=== PATIENT | female | born 1995 | race Caucasian/White ===

== ENCOUNTER 2020-06-29 15:47 | Outpatient (CLI) | payer OTHER ==
[2020-06-29 16:39] VITALS: BP 131/82
[2020-06-29 17:29] LABS: BASOPHILS # (AUTO) 0.1 10^3/uL (0.0-0.1); BASOPHILS % (AUTO) 0.3 %; EOSINOPHILS # (AUTO) 0.3 10^3/uL (0.0-0.7); EOSINOPHILS % (AUTO) 1.5 %; HCT - HEMATOCRIT 37.4 % (37.0-47.0); HGB - HEMOGLOBIN 12.3 g/dL (12.0-16.0); LYMPHOCYTES # (AUTO) 2.1 10^3/uL (1.5-3.5); LYMPHOCYTES % (AUTO) 10.9 %; MEAN CORPUSCULAR HEMOGLOBIN 30.9 pg (27.0-31.0); MEAN CORPUSCULAR HGB CONC 32.9 g/dL (32.0-36.0); MEAN PLATELET VOLUME 9.9 fL (7.9-10.8); MONOCYTES # (AUTO) 0.9 10^3/uL (0.0-1.0); MONOCYTES % (AUTO) 4.7 %; NEUTROPHILS # (AUTO) 15.6 10^3/uL (1.5-6.6); PLT - PLATELET COUNT 258 10^3/uL (130-450); RED BLOOD COUNT 3.98 10^6/uL (4.20-5.40); RED CELL DISTRIBUTION WIDTH 12.6 % (12.0-15.0); WHITE BLOOD COUNT 19.1 x10^3/uL (4.8-10.8)
--- NOTE | 2020-06-29 18:40 | Ultrasound Report ---
PROCEDURE: OB Limited INDICATIONS: Vaginal bleeding, concern for abruption. OUTSIDE/PRIOR DATING DATA: Estimated date of delivery (ASHLEY) from first dating scan: 08/26/2020, provider supplied. The below data below was generated using the above ASHLEY of 08/26/2020 TECHNIQUE: Real-time scanning was performed of the fetus, with image documentation. Endovaginal scanning: Done COMPARISON: None. FINDINGS: A single living intrauterine gestation is present. Presentation: Breech Placenta: Placental position is anterior, without previa or abruption. Amniotic fluid index: 16.2 cm heart rate: 144 beats per minutes. Maternal cervical canal: Not well visualized Visualized anatomy within appropriate limits IMPRESSION: Single live intrauterine consistent with a clinical age of 31 week 5 day No ultrasound evidence of placental abruption Reviewed by: Fan Vázquez MD on 06/29/2020 5:39 PM SENG Approved by: Fan Vázquez MD on 06/29/2020 5:39 PM SENG Station ID: [id number]
--- NOTE | 2020-06-29 18:46 | HISTORY & PHYSICAL EXAMINATION ---
Admit History - Visit Reason Visit Reason: Bloody show - : 1 Parity: 0 Premature: 0 Ectopic: 0 : 0 Complications This : positive: None - Mother's Labs Mother's Blood Type: positive: O Mother's RH: positive: Negative Rubella Status: positive: Immune - Other Maternal History Other Maternal History: Identification: Patient is a 24-year-old primigravida. Her EDC by LMP is 14 August 2020. She had an early ultrasound done at 6 weeks 2 days which give her an EDC of 19 August 2020. She has 2 further ultrasounds one done at 21 weeks and the other done at 22 weeks which gives EDC's of cysts 27 August and 22 August respectively. By LMP she is currently 33 weeks and 2 days. Chief complaint bloody show History of present illness: Patient states that she had brown vaginal discharge this morning. Change to pink this afternoon. She presented to labor and delivery at 1630. Patient notes good motion as well as doing kick counts. Heart tones were unable to be auscultated upon arrival to labor and delivery bedside ultrasound was performed showing the infant to be back down with excellent amniotic fluid and active cardiac activity at 130 bpm. Because of the bloody show and no previous OB care here ultrasound was performed which showed no evidence of previa or abruption. Patient has a history of having had a cervix which was noted to be 2.8 cm. She was started on progesterone a follow-up ultrasound showed the cervix to then be 3.5 cm without any funneling.7 cm.For this reason her progesterone was stopped. A yeast infection both of which were being treated. Patient stopped her OB care at roughly 23 weeks because she was traveling [facility] to [place]. She was also noted to have a low vitamin D. Patient is noted to be O- and has not received any RhoGam at this time. Early 50 gm was 99 and HgA1C was normal. Med Hx left knee arthritis Sx Hx none Meds: PNV Vit D NKA Habits None Social Hx: ADN Meds/Allgy - Allergies Allergies/Adverse Reactions: Allergies Allergy/AdvReac Type Severity Reaction Status Date / Time lavender (Lavandula Allergy Rash Verified 06/29/20 19:39 angustifolia) Physical - Abdominal Exam Vital Signs: Temp Pulse Resp BP Pulse Ox 37.2 C 90 20 131/82 H 98 06/29/20 16:24 06/29/20 16:24 06/29/20 16:24 06/29/20 16:24 06/29/20 16:24 Contraction Frequency (min/apart): none Uterine Resting Tone: positive: Soft - Presentation Presentation: positive: Transverse - Vaginal Exam Membranes: positive: Membranes intact (ROM +) Dilation (in cm): 0 Effacement (%): 2.9 cm Cervical Position: positive: Posterior - Speculum Exam Speculum Exam Performed: positive: Yes (FFN negative, ROM + negative) Plan for Labor - Plan For Labor I expect patient to be DC'd or transferred within 96 hours.: Yes Plan for Labor: Patient is currently not in labor she is.33 weeks gestation Have discussed labor rupture membranes and motion. She was informed that should she have any suggestion of fluid leakage that she should present back sooner. We are trying to arrange for her to be seen in the clinic as soon as possible. She will be receiving RhoGam she is also had a 50 g Glucola test done today.
[2020-06-29 19:02] LABS: RUPTURE OF MEMBRANES PLUS NEGATIVE (NEGATIVE)
--- NOTE | 2020-06-29 19:25 | Ultrasound Report ---
PROCEDURE: OB Transvaginal INDICATIONS: check cervical length OUTSIDE/PRIOR DATING DATA: Last menstrual period (LMP): Unknown. LMP-based estimated date of delivery (ASHLEY): No. First dating scan (date and location): None available. Estimated date of delivery (ASHLEY) from first dating scan: 31 weeks 5 days. The below data below was generated using the provider stated ASHLEY of 08/26/2020 TECHNIQUE: Real-time scanning was performed of the fetus, with image documentation. Endovaginal scanning: Performed COMPARISON: None. FINDINGS: A single living intrauterine gestation is present. Presentation: Breech Placenta: Placental position is anterior, without previa. Amniotic fluid index: 16.2 cm, within normal limits. Largest pocket measures 8.04 cm heart rate: 144 beats per minutes. Maternal cervical canal: 2.99 cm long; normal length is 2.5 cm or more. IMPRESSION: Single living intrauterine fetus in breech presentation Cervical canal length of 2.99 cm. No evidence of placental abruption. No placenta previa. Dr. Fish was present during the examination and aware of the findings. Reviewed by: Keith Sharma MD on 06/29/2020 7:24 PM PDT Approved by: Keith Sharma MD on 06/29/2020 7:24 PM PDT Station ID: [id number]
[2020-06-29] MEDS ORDERED: RHO(D) IMMUNE GLOBULIN 300 MCG SYRINGE IM ONE (19:33)
[2020-06-29] MEDS ORDERED: BETAMETHASONE 30 MG/5 ML VIAL IM SCH (21:00)
[2020-06-29 21:29] LABS: RUPTURE OF MEMBRANES PLUS NEGATIVE (NEGATIVE)
== END 2020-06-29 21:40 | disposition home or self-care (01) ==
LOC: WFO 15:47 → FBP 15:52 → WFO 21:40
PROVIDERS: ATTEND Obstetrics & Gynecology
DX: O46.93 Antepartum hemorrhage, unspecified, third trimester (principal); O32.1XX0 Maternal care for breech presentation, not applicable or unspecified; O99.891 Other specified diseases and conditions complicating pregnancy; Z67.41 Type O blood, Rh negative; Z3A.33 33 weeks gestation of pregnancy
CPT/HCPCS: 59025; 82731; 82950; 84112; 85025; 86850; 86900; 86901; 87081; 87181; 87797; 96372; 99214; 99215

== ENCOUNTER 2020-06-30 20:53 | Outpatient (CLI) | payer OTHER ==
[2020-06-30] MEDS ORDERED: BETAMETHASONE 30 MG/5 ML VIAL IM ONE (21:04)
== END 2020-06-30 21:20 | disposition home or self-care (01) ==
LOC: WFO 20:53 → FBP 20:54 → WFO 21:20
PROVIDERS: ATTEND Obstetrics & Gynecology
DX: O60.00 Preterm labor without delivery, unspecified trimester (principal); Z3A.00 Weeks of gestation of pregnancy not specified
CPT/HCPCS: 96372

== ENCOUNTER 2020-07-06 06:51 | Inpatient (IN) | payer OTHER ==
[2020-07-06] MEDS ORDERED: LACTATED RINGERS 1,000 ML IV ONE ×3 (07:16→10:19)
[2020-07-06] MEDS ORDERED: ceFAZolin 3 GM in SODIUM CHLORIDE 0.9% 100ML 100 ML IV ONE ×2 (07:19→08:00)
[2020-07-06] MEDS ORDERED: CITRIC ACID/SODIUM CITRATE 15 ML UDC PO ONE (07:19)
[2020-07-06] MEDS ORDERED: MAGNESIUM SULFATE 4 GRAM 4 GM/50 ML BAG IV ONE ×2 (07:19→07:27)
[2020-07-06] MEDS ORDERED: MAGNESIUM SULFATE 2 GRAM 4 GM/100 ML BAG IV ONE (07:26)
[2020-07-06] MEDS ORDERED: MAGNESIUM SULFATE IN WATER 20 GM/500 ML IV.SOLN IV ONE (07:27)
[2020-07-06 07:30] LABS: RUPTURE OF MEMBRANES PLUS POSITIVE (NEGATIVE)
[2020-07-06] MEDS ORDERED: miSOPROStoL 200 MCG TABLET ONE (07:38)
[2020-07-06] MEDS ORDERED: CARBOPROST TROMETHAMINE 250 MCG/ML AMP IM ONE (07:39)
[2020-07-06] MEDS ORDERED: METHYLERGONOVINE 0.2 MG/ML VIAL ONE (07:39)
[2020-07-06] MEDS ORDERED: ceFAZolin 2 GM/50 ML 2 GM/50 ML BAG IV SCH (07:40)
[2020-07-06 07:42] LABS: BASOPHILS # (AUTO) 0.1 10^3/uL (0.0-0.1); BASOPHILS % (AUTO) 0.2 %; EOSINOPHILS # (AUTO) 0.2 10^3/uL (0.0-0.7); EOSINOPHILS % (AUTO) 0.9 %; HCT - HEMATOCRIT 34.1 % (37.0-47.0); HGB - HEMOGLOBIN 11.6 g/dL (12.0-16.0); LYMPHOCYTES # (AUTO) 2.4 10^3/uL (1.5-3.5); LYMPHOCYTES % (AUTO) 10.8 %; MEAN CORPUSCULAR HEMOGLOBIN 31.4 pg (27.0-31.0); MEAN CORPUSCULAR VOLUME 92.2 fL (81.0-99.0); MEAN PLATELET VOLUME 9.7 fL (7.9-10.8); MONOCYTES # (AUTO) 1.1 10^3/uL (0.0-1.0); NEUTROPHILS # (AUTO) 18.4 10^3/uL (1.5-6.6); NEUTROPHILS % (AUTO) 82.4 %; PLT - PLATELET COUNT 271 10^3/uL (130-450); RED CELL DISTRIBUTION WIDTH 12.3 % (12.0-15.0); WHITE BLOOD COUNT 22.4 x10^3/uL (4.8-10.8)
[2020-07-06 07:43] LABS: SLIDE REVIEW? Indicated
[2020-07-06] MEDS ORDERED: MORPHINE PF 5 MG/10 ML VIAL ONE (07:43)
[2020-07-06] MEDS ORDERED: fentaNYL 100 MCG/2 ML VIAL ONE (07:43)
[2020-07-06] MEDS ORDERED: PHENYLEPHRINE 10 MG/ML VIAL ONE (07:45)
[2020-07-06] MEDS ORDERED: OXYTOCIN 10 UNIT/ML VIAL ONE (07:45)
--- NOTE | 2020-07-06 07:52 | HISTORY & PHYSICAL EXAMINATION ---
HPI - Admitted From Admitted from: OB - History Obtained From Records Reviewed: Old records reviewed (PREVIOUS H&P stated her ROM + was positive. in reality it was negative. See lab results.) History obtained from: Patient - History of Present Illness HPI Comment/Other: Identification: Patient is a 24-year-old female who is EDC is4 August. This makes her 32 weeks and 5 days. Spontaneous rupture of membran. History of present illness patient awoke this morning at 6:00 with fluid leaking from vagina she describes this as being a large amount. She presented t PMH/PSH - Past Medical History Cardiovascular: positive: None Respiratory: positive: None Neuro: positive: None Endocrine/Autoimmune: positive: None GI: positive: None EP SPECIALIST: positive: None Social & Family Hx - Living Situation Living Arrangement: At home Living Situation: With spouse/s.o. - Social History Does the pt smoke?: No Smoking Status: Never smoker Does the pt drink ETOH?: No Does the pt have substance abuse?: No Meds/Allgy - Allergies Allergies/Adverse Reactions: Allergies Allergy/AdvReac Type Severity Reaction Status Date / Time lavender (Lavandula Allergy Rash Verified 06/29/20 19:39 angustifolia) Exam - Vital Signs Reviewed Vital Signs: Yes Vital Signs: Vital Signs x48h Temp Pulse Resp BP Pulse Ox 07/06/20 07:22 36.8 C 07/06/20 07:01 36.8 C 101 H 16 125/79 99 - Physical Exam General Appearance: positive: No acute distress, Alert Eyes Bilateral: positive: Normal inspection, PERRL Respiratory: positive: Chest non-tender, No respiratory distress, Breath sounds nml Cardiovascular: positive: Regular rate & rhythm, No murmur, No gallop Abdomen: positive: Non-tender, No organomegaly, Nml bowel sounds, No distention, Mass (GRAVID) Results - Lab Results Fish Bones: 07/08/20 06:47 Other Lab Results: Lab Results x24hrs 07/06/20 07/06/20 Range/Units 07:30 07:07 WBC 22.4 H (4.8-10.8) x10^3/uL RBC 3.70 L (4.20-5.40) 10^6/uL Hgb 11.6 L (12.0-16.0) g/dL Hct 34.1 L (37.0-47.0) % MCV 92.2 (81.0-99.0) fL MCH 31.4 H (27.0-31.0) pg MCHC 34.0 (32.0-36.0) g/dL RDW 12.3 (12.0-15.0) % Plt Count 271 (130-450) 10^3/uL MPV 9.7 (7.9-10.8) fL Manual Slide Review Indicated Membranes Rupture POSITIVE A (NEGATIVE) Impression/Plan - Problem List Problem List: 24 yo 33 weeks SROM Breech presentation Nontransferable. Stabilize, Nursery transport team PLTC/S
[2020-07-06] MEDS ORDERED: MAGNESIUM SULFATE IN WATER 20 GM/500 ML IV.SOLN IV SCH (08:00)
[2020-07-06 08:01] LABS: RBC MORPHOLOGY (MULTIPLE) 2+ ANISOCYTOSIS (NORMAL)
--- NOTE | 2020-07-06 08:12 | ANESTHESIA ---
Pre-Anesthesia VS, & Labs - Diagnosis Rupture of membrane, breech presentation - Procedure primary c/s Vital Signs: Temp Pulse Resp BP Pulse Ox 36.9 C 87 17 119/61 97 07/06/20 08:00 07/06/20 08:00 07/06/20 08:00 07/06/20 08:00 07/06/20 08:00 Height: 5 ft 5 in Weight (kg): 94.347 kg Body Mass Index: 34.6 BMI Classification: Obese - Is Patient ?: Yes - Lab Results Current Lab Results: Laboratory Tests 07/06/20 07:30: WBC 22.4 H, RBC 3.70 L, Hgb 11.6 L, Hct 34.1 L, MCV 92.2, MCH 31.4 H, MCHC 34.0, RDW 12.3, Plt Count 271, MPV 9.7, Neut # (Auto) 18.4 H, Lymph # (Auto) 2.4, [place] # (Auto) 1.1 H, Eos # (Auto) 0.2, Baso # (Auto) 0.1, Absolute Nucleated RBC 0.00, Nucleated RBC % 0.0, Manual Slide Review Indicated, RBC Morph Micro Appear 2+ ANISOCYTOSIS Fish Bones: 07/06/20 07:30 Home Medications and Allergies Active Medications Lactated Ringer's (Lr) 1,000 mls @ 999 mls/hr IV ONCE ONE Stop: 07/06/20 08:18 Last Admin: 07/06/20 07:23 Dose: 999 mls/hr Documented by: Magnesium Sulfate (Magnesium Sulf 20 G/500 Ml Bag) 20 gm in 500 mls @ 50 mls/hr IV .Q10H ANAM Cefazolin Sodium 3 gm/ Sodium (Chloride) 100 mls @ 200 mls/hr IV ONCE ONE Stop: 07/06/20 08:29 Allergies/Adverse Reactions: Allergies Allergy/AdvReac Type Severity Reaction Status Date / Time lavender (Lavandula Allergy Rash Verified 06/29/20 19:39 angustifolia) Anes History & Medical History - Anesthetic History Family history of Anesthesia Complications: Denies Family history of Malignant Hyperthermia: Denies - Medical History Cardiovascular: reports: None Pulmonary: reports: None Gastrointestinal: reports: None Urinary: reports: None Neuro: reports: None Musculoskeletal: reports: None Endocrine/Autoimmune: reports: None Blood Disorders: reports: None Skin: reports: None Smoking Status: Never smoker Psychosocial: reports: No issues indicated History of Cancer?: No - Obstetrical History : 1 Parity: 0 Events: reports: labor <37 weeks Complications: reports: None Exam General: Alert, Oriented x3, Cooperative, No acute distress Dental: WNL Mouth Openin Fingerbreadth Neck Mobility: Normal Mallampati classification: I Thyromental Distance: 4-6 cm Mental/Cognitive Status: Alert/Oriented X3, Normal for patient Plan Anesthesia Type: Spinal Consent for Procedure(s) Verified and Reviewed: Yes Code Status: Attempt Resuscitation ASA classification: 2-Mild systemic disease Is this case an emergency?: Yes
[2020-07-06] MEDS ORDERED: AMPICILLIN 2 GM in SODIUM CHLORIDE 0.9% MINIBAG 100 ML IV SCH (08:15)
[2020-07-06] MEDS ORDERED: LIDOCAINE MPF 2%-EPI 1:200000 20 ML VIAL ONE (08:41)
[2020-07-06] MEDS ORDERED: BUPIVACAINE 0.25% PF 30 ML VIAL ONE (08:41)
[2020-07-06] MEDS ORDERED: fentaNYL 100 MCG/2 ML VIAL IT ONE (08:41)
[2020-07-06] MEDS ORDERED: MORPHINE PF 5 MG/10 ML VIAL IT ONE (08:41)
[2020-07-06] MEDS ORDERED: LIDOCAINE 2%-EPI 1:100000 20 ML MDV SUBQ ONE ×2 (08:42)
[2020-07-06] MEDS ORDERED: BUPIVACAINE 0.25% PF 30 ML VIAL SUBQ ONE ×2 (08:42→09:59)
[2020-07-06] MEDS ORDERED: ONDANSETRON 4 MG/2 ML VIAL ONE (09:14)
[2020-07-06] MEDS ORDERED: KETAMINE 500 MG/10 ML VIAL ONE (09:28)
[2020-07-06] MEDS ORDERED: SODIUM CHLORIDE 0.9% 10 ML VIAL IVP ONE ×3 (09:29→11:43)
[2020-07-06] MEDS ORDERED: MIDAZOLAM 2 MG/2 ML VIAL ONE (09:31)
[2020-07-06] MEDS ORDERED: KETOROLAC 30 MG/ML VIAL ONE (10:02)
[2020-07-06] MEDS ORDERED: diphenhydrAMINE 25 MG CAPSULE PO PRN (10:18)
[2020-07-06] MEDS ORDERED: SODIUM CHLORIDE FLUSH 0.9% 10 ML SYRINGE IVP PRN (10:18)
[2020-07-06] MEDS ORDERED: ONDANSETRON 4 MG/2 ML VIAL IVP PRN ×4 (10:18→10:27)
--- NOTE | 2020-07-06 10:24 | OPERATIVE REPORT ---
Operative Report - General Admit Date: 07/06/20 Procedure Date: 07/06/20 Planned Procedure: Stat primary low transverse section Pre-Op Diagnosis: 1..Spontaneous rupture of membranes #2 breech presentation number #33 weeks Procedure Performed: Primary stat low transverse section Post Op Diagnosis: Same - Procedure Note Primary Surgeon: Jono Fish MD Secondary Surgeon: Casandra Kaminski MD Anesthesia Provider: Joey Colon CRNA Anesthesia Technique: Spinal Estimated Blood Loss (mL): 400 Urine Output (mL): 600 Findings: Live female breech presentation deep into the pelvis minimal amniotic fluid. - Other Other Information/Narrative: Patient is was taken to the operating room at which time a vaginal prep with Betadine was performed a Devlin catheter was placed under sterile conditions and she was prepped and draped in the usual fashion following a timeout the procedure was commenced. A Pfannenstiel incision was carried down through the subcutaneous tissue to the fascia. The fascia was split transversely then utilizing blunt dissection was freed from the rectus abdominis. The rectus was split along the midline the peritoneum was entered bluntly. The incision was carried superior and inferior with Metzenbaum scissors. Care was taken avoid injury to the bladder. At this point a bladder flap was developed using both bl unt and sharp dissection. A low transverse uterine is incision was accomplished using a #10 baby bandage scissors as well as finger spread technique. The breech of the infant was noted to be deep in the pelvic cavity. It was brought up through the incision the breech was delivered in the standard fashion. At this point the cord was allowed to pulsate for 1 minute and then was doubly clamped and divided care was taken to give at least 10-15 cm of cord for strike warfare/missile systems officer. At this point a segment of cord was clamped and set at 5 side for cord gases. Cord blood was attempted to be obtained but difficult secondary to the shortness of the cord. The placenta was then manually delivered the uterus was exteriorized wrapped in with moist lap and cleansed in the internal portion with a dry lap. And extension of the incision was noted on the left-hand side in a T fashion. This was closed utilizing 0 Vicryl in a running locking suture. The incision itself was closed utilizing #0 Vicryl in running locked incision. Both incisions were imbricated with 0 Vicryl. There is an area at the T which was reinforced with an additional 0 Vicryl. The uterus was then tipped forward and the cul-de-sac was irrigated and the estimated blood loss was obtained at this time. The uterus was delivered back in the abdominal cavity. The gutters were irrigated and noted to be free of clot. The incision was inspected a single figure of 8 was utilized to reinforce that there was evidence of good hemostasis. The peritoneum was closed utilizing 2-0 Vicryl the rectus was inspected and electrocautery was used for hemostasis. The fascia was then closed utilizing a looped PDS in a running suture the subcutaneous tissue was inspected no bleeding noted so this was closed utilizing 2-0 Vicryl the incision itself was closed utilizing 4-0 Monocryl subcuticular. The incision was injected once again with quarter percent Marcaine with epinephrine. At this point a sterile dressing was placed. The uterus was then expressed for clot. Patient tolerated procedure well. Dr. Kaminski's assistance was necessary for performing this case and was very much appreciated. Sponge and needle count was correct
[2020-07-06] MEDS ORDERED: ePHEDrine 50 MG/ML VIAL IVP PRN ×3 (10:26→10:27)
[2020-07-06] MEDS ORDERED: ATROPINE ABBOJECT 1 MG/10 ML SYRINGE IVP PRN (10:26)
[2020-07-06] MEDS ORDERED: NALBUPHINE 10 MG/ML AMP IVP PRN ×2 (10:26→10:27)
[2020-07-06] MEDS ORDERED: fentaNYL 100 MCG/2 ML VIAL IVP PRN (10:26)
[2020-07-06] MEDS ORDERED: METOCLOPRAMIDE 10 MG/2 ML VIAL IVP PRN ×3 (10:26→10:27)
[2020-07-06] MEDS ORDERED: HYDROmorphone 0.5 MG/0.5 ML SYRINGE IVP PRN (10:26)
[2020-07-06] MEDS ORDERED: diphenhydrAMINE INJ 50 MG/ML VIAL IVP PRN ×2 (10:26→10:27)
[2020-07-06] MEDS ORDERED: MORPHINE 2 MG/ML CARPUJECT IVP PRN (10:26)
[2020-07-06] MEDS ORDERED: NALOXONE 0.4 MG/ML VIAL IVP PRN ×3 (10:26→10:27)
[2020-07-06] MEDS ORDERED: LACTATED RINGERS 1,000 ML IV SCH (11:00)
[2020-07-06] MEDS: LACTATED RINGERS 1,000 ML IV SCH (12:05)
--- NOTE | 2020-07-06 12:10 | ANESTHESIA POST OP EVALUATION ---
Anesthesia Post Eval - Post Anesthesia Eval Vitals: Last Vital Signs Temp 36.6 C 07/06/20 11:58 Pulse 76 07/06/20 11:58 Resp 16 07/06/20 11:58 BP 114/58 L 07/06/20 11:58 Pulse Ox 100 07/06/20 11:58 CV Function Including HR & BP: Stable Pain Control: Satisfactory Nausea & Vomiting: Negative Mental Status: Baseline Respiratory Status: Airway Patent Hydration Status: Satisfactory Anesthesia Complications: None
[2020-07-06] MEDS: oxyCODONE 5 MG TABLET PO PRN ×2 (13:28→19:45)
[2020-07-06] MEDS: ACETAMINOPHEN 500 MG TABLET PO SCH ×2 (13:28→21:12)
[2020-07-06] MEDS ORDERED: OXYTOCIN/SODIUM CHLORIDE 500 ML IV PRN (15:17)
[2020-07-06] MEDS: KETOROLAC 30 MG/ML VIAL IVP SCH ×2 (16:46→22:34)
[2020-07-06] MEDS: SODIUM CHLORIDE FLUSH 0.9% 10 ML SYRINGE IVP SCH (16:47)
[2020-07-06] MEDS: DOCUSATE SODIUM 100 MG CAPSULE PO SCH (19:45)
[2020-07-07] MEDS: oxyCODONE 5 MG TABLET PO PRN ×4 (00:06→19:59)
[2020-07-07] MEDS: KETOROLAC 30 MG/ML VIAL IVP SCH (04:30)
[2020-07-07] MEDS: SODIUM CHLORIDE FLUSH 0.9% 10 ML SYRINGE IVP SCH (04:36)
[2020-07-07] MEDS: ACETAMINOPHEN 500 MG TABLET PO SCH ×4 (04:36→21:14)
[2020-07-07] MEDS: LACTATED RINGERS 1,000 ML IV SCH ×2 (04:37→04:44)
[2020-07-07] MEDS: DOCUSATE SODIUM 100 MG CAPSULE PO SCH ×3 (04:44→21:14)
[2020-07-07 05:46] LABS: BASOPHILS % (AUTO) 0.3 %; EOSINOPHILS % (AUTO) 0.9 %; HGB - HEMOGLOBIN 10.2 g/dL (12.0-16.0); LYMPHOCYTES % (AUTO) 11.2 %; MEAN CORPUSCULAR HEMOGLOBIN 31.3 pg (27.0-31.0); MEAN CORPUSCULAR HGB CONC 32.9 g/dL (32.0-36.0); MEAN CORPUSCULAR VOLUME 95.1 fL (81.0-99.0); MEAN PLATELET VOLUME 9.9 fL (7.9-10.8); MONOCYTES % (AUTO) 6.4 %; NEUTROPHILS % (AUTO) 80.6 %; PLT - PLATELET COUNT 251 10^3/uL (130-450); RED BLOOD COUNT 3.26 10^6/uL (4.20-5.40); RED CELL DISTRIBUTION WIDTH 12.6 % (12.0-15.0); WHITE BLOOD COUNT 21.2 x10^3/uL (4.8-10.8)
[2020-07-07 05:50] LABS: ABNORMAL LYMPHS % (MANUAL) 0 %
[2020-07-07 06:07] LABS: BAND NEUTROPHILS % (MANUAL) 5 %; BASOPHILS # (MANUAL) 0.2 10^3/uL (0-0.1); BASOPHILS % (MANUAL) 1 %; DIFFERENTIAL COMMENT MANUAL DIFFERENTIAL; EOSINOPHILS # (MANUAL) 1.1 10^3/uL (0-0.7); LYMPHOCYTES # (MANUAL) 2.3 10^3/uL (1.5-3.5); LYMPHOCYTES % (MANUAL) 11 %; MONOCYTES # (MANUAL) 0.4 10^3/uL (0.0-1.0); NEUTROPHILS # (MANUAL) 17.2 10^3/uL (1.5-6.6); PLATELET ESTIMATE, MANUAL NORMAL (130-450,000) (NORMAL); RBC MORPHOLOGY (MULTIPLE) NORMAL APPEARANCE (NORMAL)
--- NOTE | 2020-07-07 08:06 | PROVIDER PROGRESS NOTE ---
Subjective - General Admit Date: 07/06/20 Procedure Date: 07/06/20 Post Op Days: 1 Procedure Performed: Emergency PLTC/S - Review of Systems Wound/Incisions: positive: Dressing dry and intact General: positive: No symptoms (Pain 2-5/10 adiquit pain control with meds) Gastrointestinal: positive: Flatus Genitourinary: positive: No symptoms Objective - Patient Data Reviewed Vital Signs: Yes Vital Signs: Vital Signs x48h Temp Pulse Resp BP Pulse Ox 07/07/20 02:00 36.8 C 85 16 106/53 L 98 07/07/20 00:13 36.6 C 87 14 105/52 L 98 Weight: Weight 07/05/20 07/06/20 07/07/20 23:59 23:59 23:59 Weight (kg) 94.347 kg Intake & Output: Intake and Output Totals x24h 07/05/20 07/06/20 07/07/20 23:59 23:59 23:59 Intake Total 31.667 1485.833 Output Total 1855 450 Balance -6919.852 6409.833 - Lab Results Lab Results: 07/07/20 05:40 Other Lab Results: Lab Results x24hrs 07/07/20 07/07/20 07/07/20 Range/Units 05:51 05:40 05:40 WBC 21.2 H (4.8-10.8) x10^3/uL RBC 3.26 L (4.20-5.40) 10^6/uL Hgb 10.2 L (12.0-16.0) g/dL Hct 31.0 L (37.0-47.0) % MCV 95.1 (81.0-99.0) fL MCH 31.3 H (27.0-31.0) pg MCHC 32.9 (32.0-36.0) g/dL RDW 12.6 (12.0-15.0) % Plt Count 251 (130-450) 10^3/uL MPV 9.9 (7.9-10.8) fL Neut # (Auto) Not Reportable Lymph # (Auto) Not Reportable [place] # (Auto) Not Reportable Eos # (Auto) Not Reportable Baso # (Auto) Not Reportable Absolute Nucleated RBC Not Reportable Total Counted 100 Band Neuts % (Manual) 5 (0 - 10) % Abnorm Lymph % (Manual) 0 % Nucleated RBC % Not Reportable Neutrophils # (Manual) 17.2 H (1.5-6.6) 10^3/uL Lymphocytes # (Manual) 2.3 (1.5-3.5) 10^3/uL Monocytes # (Manual) 0.4 (0.0-1.0) 10^3/uL Eosinophils # (Manual) 1.1 H (0-0.7) 10^3/uL Basophils # (Manual) 0.2 H (0-0.1) 10^3/uL Differential Comment MANUAL DIFFERENTIAL Platelet Estimate NORMAL (130-450,000) (NORMAL) RBC Morph Micro Appear NORMAL APPEARANCE (NORMAL) POC Whole Bld Glucose 85 (70 - 100) mg/dL Blood Type O NEGATIVE Weak D (Du) WEAK-D NEGATIVE Antibody Screen Antibody Identification NURIS, IgG Specific NURIS, Polyspecific NURIS, C3d Specific Maternal Bleed NEGATIVE (NEGATIVE) Crossmatch IS Only 07/06/20 Range/Units 07:30 WBC (4.8-10.8) x10^3/uL RBC (4.20-5.40) 10^6/uL Hgb (12.0-16.0) g/dL Hct (37.0-47.0) % MCV (81.0-99.0) fL MCH (27.0-31.0) pg MCHC (32.0-36.0) g/dL RDW (12.0-15.0) % Plt Count (130-450) 10^3/uL MPV (7.9-10.8) fL Neut # (Auto) Lymph # (Auto) [place]itchie # (Auto) Eos # (Auto) Baso # (Auto) Absolute Nucleated RBC Total Counted Band Neuts % (Manual) (0 - 10) % Abnorm Lymph % (Manual) % Nucleated RBC % Neutrophils # (Manual) (1.5-6.6) 10^3/uL Lymphocytes # (Manual) (1.5-3.5) 10^3/uL Monocytes # (Manual) (0.0-1.0) 10^3/uL Eosinophils # (Manual) (0-0.7) 10^3/uL Basophils # (Manual) (0-0.1) 10^3/uL Differential Comment Platelet Estimate (NORMAL) RBC Morph Micro Appear (NORMAL) POC Whole Bld Glucose (70 - 100) mg/dL Blood Type O NEGATIVE Weak D (Du) Antibody Screen POSITIVE Antibody Identification See Comments NURIS, IgG Specific Not Reportable NURIS, Polyspecific NEGATIVE NURIS, C3d Specific Not Reportable Maternal Bleed (NEGATIVE) Crossmatch IS Only See Detail - Current Medications Current Medications: Current Medications Generic Name Dose Route Start Last Admin Trade Name Freq PRN Reason Stop Dose Admin Acetaminophen 1,000 mg 07/06/20 11:30 07/07/20 04:38 Acetaminophen 500 Mg Tablet PO 1,000 mg Q8HR ANAM Administration Docusate Sodium 100 mg 07/06/20 12:00 07/07/20 04:44 Docusate Sodium 100 Mg Capsule PO Not Given BID ANAM Magnesium Sulfate 20 gm in 500 mls @ 50 mls/hr 07/06/20 08:00 07/06/20 09:00 Magnesium Sulf 20 G/500 Ml Bag IV 0 gm/hr .Q10H ANAM 0 mls/hr Infusion 2 GM/HR Lactated Ringer's 1,000 mls @ 100 mls/hr 07/06/20 11:00 07/07/20 04:44 Lr IV Not Given .Q10H ANAM Oxytocin/Sodium Chloride 500 mls @ 999 mls/hr 07/06/20 15:17 07/07/20 01:28 Pitocin/Sodium Chloride IV 0 milliunit/min PRN PRN 0 mls/hr POST- HEMORR PREVENTION Titration Protocol 999 MILLIUNIT/MIN Ketorolac Tromethamine 30 mg 07/06/20 16:00 07/07/20 04:30 Ketorolac 30 Mg/Ml Vial IVP 07/07/20 10:01 30 mg Q6H ANAM Administration Oxycodone HCl 5 mg 07/06/20 10:18 07/07/20 00:06 Oxycodone 5 Mg Tablet PO 5 mg Q4HR PRN Administration PAIN Sodium Chloride 10 ml 07/06/20 17:00 07/07/20 04:36 Sodium Chloride Flush 0.9% 10 Ml Syringe IVP 10 ml 0100,0900,1700 ANAM Administration - Physical Exam Wound/Incisions: positive: Dressing dry and intact General Appearance: positive: No acute distress, Alert Respiratory: positive: Chest non-tender, No respiratory distress, Breath sounds nml Cardiovascular: positive: Regular rate & rhythm, No murmur, No gallop Abdomen: positive: Nml bowel sounds, Tenderness (uterus), Mass (@U) Back: negative: CVA tenderness (R), CVA tenderness (L) Extremities: negative: Calf tenderness, Calvin's sign/cords Neurologic/Psychiatric: positive: Oriented x3 Impression/Plan - Problem List Problem List: Postop day #1. Status post emergency low transverse section. Breech presentation. Patient exhibits a leukocytosis of 21,000. Her uterus is tender. She is not running a fever at this time. Baby is in NICU in [place]. At this point we will elect to treat her with antibiotics because we would like to get her home if at all possible tomorrow. We will choose Unasyn as this has a good transfer to Augmentin should she need this for discharge.
[2020-07-07] MEDS: AMPICILLIN/SULBACTAM 3 GM in SODIUM CHLORIDE 0.9% MINIBAG 100 ML IV SCH ×3 (09:20→22:15)
[2020-07-07] MEDS: IBUPROFEN 800 MG TABLET PO PRN ×2 (11:09→19:59)
[2020-07-07] MEDS ORDERED: RHO(D) IMMUNE GLOBULIN 300 MCG SYRINGE IM ONE (11:38)
[2020-07-08] MEDS ORDERED: SIMETHICONE CHEW 80 MG TABLET PO ONE (00:27)
[2020-07-08] MEDS: SODIUM CHLORIDE FLUSH 0.9% 10 ML SYRINGE IVP SCH (00:30)
[2020-07-08] MEDS: KETOROLAC 30 MG/ML VIAL IVP SCH (00:30)
[2020-07-08] MEDS: oxyCODONE 5 MG TABLET PO PRN ×3 (00:39→12:52)
[2020-07-08] MEDS: SIMETHICONE CHEW 80 MG TABLET PO SCH ×2 (00:39→13:37)
[2020-07-08] MEDS: IBUPROFEN 800 MG TABLET PO PRN ×2 (04:21→12:51)
[2020-07-08] MEDS: AMPICILLIN/SULBACTAM 3 GM in SODIUM CHLORIDE 0.9% MINIBAG 100 ML IV SCH ×2 (04:24→13:50)
[2020-07-08] MEDS: ACETAMINOPHEN 500 MG TABLET PO SCH ×2 (05:00→13:37)
[2020-07-08 06:57] LABS: BASOPHILS # (AUTO) 0.1 10^3/uL (0.0-0.1); BASOPHILS % (AUTO) 0.3 %; EOSINOPHILS # (AUTO) 0.4 10^3/uL (0.0-0.7); EOSINOPHILS % (AUTO) 2.3 %; HCT - HEMATOCRIT 30.2 % (37.0-47.0); HGB - HEMOGLOBIN 9.7 g/dL (12.0-16.0); LYMPHOCYTES # (AUTO) 2.7 10^3/uL (1.5-3.5); LYMPHOCYTES % (AUTO) 15.5 %; MEAN CORPUSCULAR HEMOGLOBIN 30.5 pg (27.0-31.0); MEAN CORPUSCULAR HGB CONC 32.1 g/dL (32.0-36.0); MEAN PLATELET VOLUME 9.6 fL (7.9-10.8); MONOCYTES % (AUTO) 5.5 %; NEUTROPHILS # (AUTO) 13.2 10^3/uL (1.5-6.6); NEUTROPHILS % (AUTO) 75.8 %; PLT - PLATELET COUNT 263 10^3/uL (130-450); RED BLOOD COUNT 3.18 10^6/uL (4.20-5.40); RED CELL DISTRIBUTION WIDTH 12.6 % (12.0-15.0); WHITE BLOOD COUNT 17.4 x10^3/uL (4.8-10.8)
--- NOTE | 2020-07-08 08:04 | PROVIDER PROGRESS NOTE ---
Subjective - General Admit Date: 07/06/20 Procedure Date: 07/06/20 Post Op Days: 2 Procedure Performed: Emergency PLTC/S - Review of Systems Wound/Incisions: positive: Healing well (dressing removed) General: positive: No symptoms (Pain 2-5/10 adiquit pain control with meds) Gastrointestinal: positive: Flatus Genitourinary: positive: No symptoms Objective - Patient Data Reviewed Vital Signs: Yes Vital Signs: Vital Signs x48h Temp Pulse Resp BP Pulse Ox 07/08/20 02:00 37 C 81 18 108/55 L 99 Weight: Weight 07/06/20 07/07/20 07/08/20 23:59 23:59 23:59 Weight (kg) 94.347 kg Intake & Output: Intake and Output Totals x24h 07/06/20 07/07/20 07/08/20 23:59 23:59 23:59 Intake Total 31.667 2635.833 100 Output Total 1855 1250 Balance -1439.376 7468.833 100 - Lab Results Lab Results: 07/08/20 06:47 Other Lab Results: Lab Results x24hrs 07/08/20 07/06/20 07/06/20 Range/Units 06:47 07:30 07:30 WBC 17.4 H (4.8-10.8) x10^3/uL RBC 3.18 L (4.20-5.40) 10^6/uL Hgb 9.7 L (12.0-16.0) g/dL Hct 30.2 L (37.0-47.0) % MCV 95.0 (81.0-99.0) fL MCH 30.5 (27.0-31.0) pg MCHC 32.1 (32.0-36.0) g/dL RDW 12.6 (12.0-15.0) % Plt Count 263 (130-450) 10^3/uL MPV 9.6 (7.9-10.8) fL Neut # (Auto) 13.2 H (1.5-6.6) 10^3/uL Lymph # (Auto) 2.7 (1.5-3.5) 10^3/uL [place] # (Auto) 1.0 (0.0-1.0) 10^3/uL Eos # (Auto) 0.4 (0.0-0.7) 10^3/uL Baso # (Auto) 0.1 (0.0-0.1) 10^3/uL Absolute Nucleated RBC 0.00 x10^3/uL Nucleated RBC % 0.0 /100WBC Blood Type O NEGATIVE Cancelled Antibody Screen POSITIVE Cancelled Antibody Identification See Comments Cancelled NURIS, IgG Specific Not Reportable Cancelled NURIS, Polyspecific NEGATIVE Cancelled NURIS, C3d Specific Not Reportable Cancelled Crossmatch See Detail See Detail Crossmatch IS Only See Detail - Current Medications Current Medications: Current Medications Generic Name Dose Route Start Last Admin Trade Name Freq PRN Reason Stop Dose Admin Acetaminophen 1,000 mg 07/06/20 11:30 07/08/20 05:00 Acetaminophen 500 Mg Tablet PO 1,000 mg Q8HR ANAM Administration Docusate Sodium 100 mg 07/06/20 12:00 07/07/20 21:14 Docusate Sodium 100 Mg Capsule PO 100 mg BID ANAM Administration Magnesium Sulfate 20 gm in 500 mls @ 50 mls/hr 07/06/20 08:00 07/06/20 09:00 Magnesium Sulf 20 G/500 Ml Bag IV 0 gm/hr .Q10H ANAM 0 mls/hr Infusion 2 GM/HR Lactated Ringer's 1,000 mls @ 100 mls/hr 07/06/20 11:00 07/07/20 04:44 Lr IV Not Given .Q10H ANAM Oxytocin/Sodium Chloride 500 mls @ 999 mls/hr 07/06/20 15:17 07/07/20 01:28 Pitocin/Sodium Chloride IV 0 milliunit/min PRN PRN 0 mls/hr POST- HEMORR PREVENTION Titration Protocol 999 MILLIUNIT/MIN Ampicillin Sodium/Sulbactam 100 mls @ 200 mls/hr 07/07/20 09:00 07/08/20 04:54 Sodium 3 gm/ Sodium Chloride IV Infused Q6HR ANAM Infusion Ibuprofen 800 mg 07/07/20 08:10 07/08/20 04:21 Ibuprofen 800 Mg Tablet PO 800 mg Q8HR PRN Administration PAIN Oxycodone HCl 5 mg 07/06/20 10:18 07/08/20 05:00 Oxycodone 5 Mg Tablet PO 5 mg Q4HR PRN Administration PAIN Simethicone 80 mg 07/08/20 09:00 07/08/20 00:39 Simethicone Chew 80 Mg Tablet PO 80 mg 0900,1300,1800,2100 ANAM Administration Sodium Chloride 10 ml 07/06/20 10:18 07/08/20 04:21 Sodium Chloride Flush 0.9% 10 Ml Syringe IVP 10 ml PRN PRN Administration NEEDED PER PROVIDER ORDERS Sodium Chloride 10 ml 07/06/20 17:00 07/08/20 00:30 Sodium Chloride Flush 0.9% 10 Ml Syringe IVP Not Given 0100,0900,1700 [facility] - Physical Exam Wound/Incisions: positive: Healing well General Appearance: positive: No acute distress Respiratory: positive: Chest non-tender, No respiratory distress Cardiovascular: positive: Regular rate & rhythm, No murmur Abdomen: positive: Non-tender, Mass Back: negative: CVA tenderness (R), CVA tenderness (L) Impression/Plan - Problem List Problem List: POD #2 Afebrilem uterune tenderness markedly improved. WBC improving Plan discharge. Change to augmentin 500/125 Discharge medications Oxycodone 5 mg Motrin 800 mg Augmentin 500/125 Colace 100 mg RTC 1 week call if fevers or mastitis
[2020-07-08 09:31] VITALS: BP 118/61
[2020-07-08] MEDS: DOCUSATE SODIUM 100 MG CAPSULE PO SCH (12:52)
--- NOTE | 2020-07-09 08:47 | Labor Flowsheet ---
Labor Flowsheet Datetime Report Generated by CPN: 07/09/2020 08:47 Datetime: 07/06/2020 08:29 Pulse: 83 SpO2 (%): 96 Datetime: 07/06/2020 08:15 VITAL SIGNS NBP Sys/[place]/Mean (mmHg): 115 : 63 : 76
--- NOTE | 2020-07-14 08:13 | DISCHARGE SUMMARY ---
"Discharge Summary Admit Date: 07/06/20 Discharge Date: 07/09/20 Discharging Provider: Jono Fish MD Code Status: Attempt Resuscitation Condition at Discharge: Good - DIAGNOSES Admission Diagnoses: 1 24 yo G1 2 SROM 3 32 wk 5 d 4 Breech Discharge Diagnoses with Status of Each Condition: Same endomyometritis - HPI History of Present Illness: Patient is a 24-year-old primigravida who presents at 32 weeks and 5 days. She gives a history of having spontaneous rupture membranes at 6:00 in the morning. She had her initial OB care done at [facility] in [facility] transferred to here but has not been seen in the clinic yet. She had a 10-week hiatus of OB care. She was seen earlier this week with complaints of possible contractions. She was ROM plus negative at that time. Her examination showed her to be breech presentation.It was my assessment at this time that she is nontransferable. - CONSULTS | PROCEDURES Procedures: Low transverse section - HOSPITAL COURSE Hospital Course: Patient was admitted to labor and delivery. Because of the prematurity it was decided to try and obtain a pediatric transfer team as soon as possible to aid in the resuscitation. Senior Director Of Strategy was consulted. At that point a primary low transverse section was accomplished. Blood loss was minimal during the procedure. Patient did receive a vaginal prep as well as put preop antibiotics.The also received ampicillin because of a group B strep positive. Following delivery her course was significant in that she had an elevated white count around 20,000 she receivedInfant was transported Unasyn postop and was changed to Augmentin for discharge. This was because she needed to be with her baby. - ALLERGIES Allergies/Adverse Reactions: Allergies Allergy/AdvReac Type Severity Reaction Status Date / Time lavender (Lavandula Allergy Rash Verified 06/29/20 19:39 angustifolia) - PHYSICAL EXAM AT DISCHARGE General Appearance: positive: No acute distress, Alert Cardiovascular: positive: Regular rate & rhythm, No murmur, No gallop - LABS Result Diagrams: 07/08/20 06:47 - QUALITY (Female Hip Fx Only) Was patient sent home on osteoporosis medication?: Yes (500Patient's discharge medications were those of Augmentin oxycodone 5 mg M) - FOLLOW UP Follow Up: Instructed to follow-up in the clinic in 1 week."
== END 2020-07-08 18:30 | disposition home or self-care (01) | DRG 786 ==
LOC: WFO 06:51 → FBP 06:55 → WFO 07:15 → FBP 07:16 → OBS 07-07 18:40
PROVIDERS: ADMIT Obstetrics & Gynecology; ATTEND Obstetrics & Gynecology
PROC: 10D00Z1 Extraction of Products of Conception, Low, Open Approach (ICD-10-PCS; principal; 2020-07-06 07:00)
DX: O32.1XX0 Maternal care for breech presentation, not applicable or unspecified (principal); O60.14X0 Preterm labor third trimester with preterm delivery third trimester, not applicable or unspecified; O41.1230 Chorioamnionitis, third trimester, not applicable or unspecified; Z3A.32 32 weeks gestation of pregnancy; Z37.0 Single live birth; Z37.1 Single stillbirth; O99.214 Obesity complicating childbirth; E66.9 Obesity, unspecified; O90.89 Other complications of the puerperium, not elsewhere classified; D72.829 Elevated white blood cell count, unspecified
CPT/HCPCS: 36415; 83033; 84112; 85025; 86850; 86870; 86880; 86900; 86901; 86922; 99215; A9270; J2274; J7120; 86920; J3475

== ENCOUNTER 2021-12-14 14:36 | Emergency (ER) | payer OTHER ==
[2021-12-14 15:01] VITALS: BP 131/76
--- NOTE | 2021-12-14 16:47 | ED Physician Documentation ---
History of Present Illness - Stated complaint Stated Complaint: DIZZY/SOA - Chief complaint Chief Complaint: General - History obtained from History obtained from: Patient - Additonal information Additional information: Otherwise healthy 26-year-old woman presents with her for evaluation of persistent COVID symptoms. She developed symptomatic COVID 8 days ago. She home quarantine for 5 days and then went back to work today. She had been feeling lightheaded all the time but today after standing for an hour at work she started to feel very lightheaded and presyncopal. She is also had ongoing shortness of breath with productive cough. No associated fevers, leg swelling. No possibility of and not on hormonal control. She denies calf pain. No hemoptysis. No fevers. Of note she retested for COVID today prior to going to work and was still positive on an antigen test. Review of Systems Constitutional: reports: Myalgias, Fatigue. 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 : None Musculoskeletal: None Derm: None - Allergies Allergies/Adverse Reactions: Allergies Allergy/AdvReac Type Severity Reaction Status Date / Time lavender (Lavandula Allergy Rash Verified 12/14/21 15:01 angustifolia) - Social History Does the pt smoke?: No Smoking Status: Never smoker Does the pt drink ETOH?: No Does the pt have substance abuse?: No PD ED PE NORMAL - Vitals Vital signs reviewed: Yes - General General: Alert and oriented X 3, No acute distress - HEENT HEENT: PERRL, EOMI - Neck Neck: Supple, no meningeal sign, No bony TTP - Cardiac Cardiac: RRR, No murmur - Respiratory Respiratory: No respiratory distress, Clear bilaterally - Abdomen Abdomen: Non tender - Back Back: No CVA TTP, No spinal TTP - Derm Derm: Normal color, Warm and dry - Extremities Extremities: No edema, No calf tenderness / cord - Neuro Neuro: Alert and oriented X 3, Normal speech Results - Vitals Vitals: Vital Signs - 24 hr 12/14/21 14:58 Temperature 36.4 C L Heart Rate 73 Respiratory 16 Rate Blood Pressure 131/76 H O2 Saturation 100 Oxygen O2 Source Room air PD MEDICAL DECISION MAKING - ED course ED course: PE is considered, but without unilateral leg swelling, hypoxemia, tachycardia, hemoptysis, hormonal control, or history of same I feel this is very unlikely. Pneumonia is considered but with clear lungs and no fever and also normal vital signs, also very unlikely. I suspect she is just still having persistent COVID symptoms, and she is still positive on an antigen test today, so conservative care and continued quarantine was advised. Departure - Departure Disposition: 01 Home, Self Care Clinical Impression: COVID-19 Condition: Good Record reviewed to determine appropriate education?: Yes Instructions: ED Viral Syndrome Comments: As discussed, I think your symptoms are pretty consistent with just persistent COVID especially since you are still testing positive with an antigen test. Rest and drink plenty of fluids. Return for new or worsening symptoms. You should not to return to work at least through the weekend and until testing negative on an antigen test. Forms: Activity restrictions
== END 2021-12-14 16:52 | disposition home or self-care (01) ==
LOC: ED 14:36
DX: U07.1 COVID-19 (principal); R42 Dizziness and giddiness; R06.02 Shortness of breath; R05.9 Cough, unspecified; R53.83 Other fatigue
CPT/HCPCS: 99282; 99284

== ENCOUNTER 2022-02-08 14:58 | Emergency (ER) | payer OTHER ==
[2022-02-08] MEDS ORDERED: SODIUM CHLORIDE 0.9% 1,000 ML IV STA (15:38)
--- NOTE | 2022-02-08 15:44 | ED Physician Documentation ---
PD HPI CHEST PAIN - Stated complaint Stated Complaint: CHEST PX,LIGHT HEAD - Chief complaint Chief Complaint: Cardiac - History obtained from History obtained from: Patient - History of Present Illness Timing - onset: Today Timing - details: Gradual onset Pain level max: 1 Pain level now: 0 Quality: Tightness. No: Pressure, Aching, Sharp, Tearing, Throbbing, Indigestion Location: Other (All over) Radiation: Other (Nonradiating) - Additional information Additional information: 26-year-old female presents to the emergency department stating that she has felt chest tightness intermittently today. Usually when she stands up, better with lying down and resting. She states she has occasional itchiness as well. She states that she feels lightheaded sometimes as well. She states she was recently started on Concerta and often will forget to eat and drink. She states she does not think that she ate anything today. No abdominal pain. No vomiting. No cough. No congestion. No fevers. No chills. 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 Musculoskeletal: None Derm: None - Past Surgical History Past Surgical History: No - Allergies Allergies/Adverse Reactions: Allergies Allergy/AdvReac Type Severity Reaction Status Date / Time lavender (Lavandula Allergy Rash Verified 12/14/21 15:01 angustifolia) - Social History Does the pt smoke?: No Smoking Status: Never smoker Does the pt drink ETOH?: No Does the pt have substance abuse?: No PD ED PE NORMAL - Vitals Vital signs reviewed: Yes - General General: Alert and oriented X 3, No acute distress, Well developed/nourished - HEENT HEENT: PERRL, Moist mucous membranes - Neck Neck: Supple, no meningeal sign - Cardiac Cardiac: RRR, Strong equal pulses - Respiratory Respiratory: No respiratory distress, Clear bilaterally - Abdomen Abdomen: Soft, Non tender, Non distended - Derm Derm: Warm and dry - Extremities Extremities: No edema, No calf tenderness / cord - Neuro Neuro: Alert and oriented X 3 - Psych Psych: Normal mood, Normal affect Results - Vitals Vitals: Vital Signs - 24 hr 02/08/22 02/08/22 02/08/22 15:04 16:14 17:00 Temperature 36 C L Heart Rate 84 77 Heart Rate [ 80 Sitting] Heart Rate [ 80 Standing] Heart Rate [ 78 Supine] Respiratory 16 16 Rate Blood Pressure 123/75 130/78 Blood Pressure 133/90 H [Sitting] Blood Pressure 130/90 H [Standing] Blood Pressure 126/80 [Supine] O2 Saturation 100 100 Oxygen O2 Source Room air - EKG (time done) 1511 Rate: Rate (enter#) (78) Rhythm: NSR [place]: Normal Intervals: Normal AL QRS: Normal Ischemia: Non specific changes - Labs Labs: Laboratory Tests 02/08/22 02/08/22 02/08/22 15:48 15:48 15:48 WBC 7.8 RBC 4.97 Hgb 14.1 Hct 43.6 MCV 87.7 MCH 28.4 MCHC 32.3 RDW 12.8 Plt Count 262 MPV 10.0 Neut # (Auto) 5.5 Lymph # (Auto) 1.7 [place] # (Auto) 0.4 Eos # (Auto) 0.2 Baso # (Auto) 0.0 Absolute Nucleated RBC 0.00 Nucleated RBC % 0.0 Sodium 135 Potassium 3.2 L Chloride 101 Carbon Dioxide 25 Anion Gap 9.0 BUN 11 Creatinine 0.8 Estimated GFR (MDRD) 85 L Glucose 77 Calcium 9.7 Total Bilirubin 1.1 H AST 17 ALT 18 Alkaline Phosphatase 106 Troponin I High Sens < 2.3 L Total Protein 7.8 Albumin 4.9 Globulin 2.9 Albumin/Globulin Ratio 1.7 Lipase 31 - Rads (name of study) Chest x-ray Radiology: EMP read indepedently (No acute disease) PD Medical Decision Making - ED course Complexity details: reviewed results, re-evaluated patient, considered differential (No ST elevation NV, no aortic dissection, no PE, no tension pneumothorax, no aortic aneurysm), d/w patient, d/w family ED course: Patient feels better after IV fluids and eating in the emergency department. Patient is well-appearing, nontoxic. Afebrile. No hypoxia. No respiratory distress. No acute findings on EKG or laboratory testing. We will have her follow-up with her doctor for further care. Recommend that she eat and drink regularly. No evidence of PE. No evidence of acute coronary syndrome. Patient counseled regarding signs and symptoms for which I believe and urgent re-evaluation would be necessary. Patient with good understanding of and agreement to plan and is comfortable going home at this time This document was made in part using voice recognition software. While efforts are made to proofread this document, sound alike and grammatical errors may occur. Departure - Departure Disposition: 01 Home, Self Care Clinical Impression: Chest pain Qualifiers: Chest pain type: unspecified Qualified Code(s): R07.9 - Chest pain, unspecified Condition: Good Instructions: ED Chest Pain Atypical Unkn Cause Follow-Up: Your,doctor in 1 week [Other] Comments: The cause of your symptoms is unclear today. Please follow-up with her doctor for further care. Please return if you worsen. Make sure you are eating and drinking regularly. Your chest x-ray, laboratory testing and EKG did not show any acute abnormalities. Discharge Date/Time: 02/08/22 17:00
[2022-02-08 15:59] LABS: BASOPHILS % (AUTO) 0.5 %; EOSINOPHILS # (AUTO) 0.2 10^3/uL (0.0-0.7); EOSINOPHILS % (AUTO) 2.2 %; HCT - HEMATOCRIT 43.6 % (37.0-47.0); HGB - HEMOGLOBIN 14.1 g/dL (12.0-16.0); LYMPHOCYTES # (AUTO) 1.7 10^3/uL (1.5-3.5); MEAN CORPUSCULAR HEMOGLOBIN 28.4 pg (27.0-31.0); MEAN CORPUSCULAR HGB CONC 32.3 g/dL (32.0-36.0); MEAN CORPUSCULAR VOLUME 87.7 fL (81.0-99.0); MONOCYTES # (AUTO) 0.4 10^3/uL (0.0-1.0); MONOCYTES % (AUTO) 4.6 %; NEUTROPHILS # (AUTO) 5.5 10^3/uL (1.5-6.6); NEUTROPHILS % (AUTO) 70.4 %; PLT - PLATELET COUNT 262 10^3/uL (130-450); RED BLOOD COUNT 4.97 10^6/uL (4.20-5.40); RED CELL DISTRIBUTION WIDTH 12.8 % (12.0-15.0); WHITE BLOOD COUNT 7.8 x10^3/uL (4.8-10.8)
[2022-02-08 16:15] LABS: ALBUMIN 4.9 g/dL (3.2-5.5); ALBUMIN/GLOBULIN RATIO 1.7 (1.0-2.2); BILIRUBIN,TOTAL 1.1 mg/dL (0.2-1.0); CALCIUM 9.7 mg/dL (8.5-10.3); CREATININE 0.8 mg/dL (0.4-1.0); POTASSIUM 3.2 mmol/L (3.5-5.0); TOTAL PROTEIN 7.8 g/dL (6.7-8.2)
[2022-02-08 17:01] VITALS: BP 130/78
--- NOTE | 2022-02-08 17:34 | XRAY Report ---
PROCEDURE: Chest 1 View X-Ray INDICATIONS: Chest Pain TECHNIQUE: One view of the chest was acquired. COMPARISON: None. FINDINGS: Surgical changes and devices: None. Lungs and pleura: No pleural effusions or pneumothorax. Lungs are clear. Mediastinum: Mediastinal contours appear normal. Heart size is normal. Bones and chest wall: No suspicious bony lesions. Overlying soft tissues appear unremarkable. IMPRESSION: No acute cardiopulmonary findings Reviewed by: Fan Vázquez MD on 02/08/2022 4:33 PM [place] Approved by: Fan Vázquez MD on 02/08/2022 4:33 PM AK Station ID: [id number]
== END 2022-02-08 17:00 | disposition home or self-care (01) ==
LOC: ED 14:58
DX: R07.9 Chest pain, unspecified (principal)
CPT/HCPCS: 36415; 80053; 83690; 84484; 85025; 93005; 99284

== ENCOUNTER 2022-07-05 08:00 | Emergency (ER) | payer OTHER ==
[2022-07-05] MEDS ORDERED: lidocaine 1% 20 ML MDV SUBQ ONE (08:30)
--- NOTE | 2022-07-05 08:35 | ED Physician Documentation ---
PD HPI SKIN - Stated complaint Stated Complaint: FEMALE - Chief complaint Chief Complaint: Wound - History obtained from History obtained from: Patient - Additional information Additional information: The patient comes to the emergency department chief complaint of swelling of her vulva. The patient states that she is about 9 weeks and just saw her OB about a week ago. She was told to do hot soaks and try to get it to drain on its own. The patient states she did not realize she was supposed to do soaks more than once a day, so she she has been soaking once a day, and the area has b een getting bigger and more painful. The patient denies any fevers or chills. No abdominal pain. No drainage. She states that she tries to keep herself clean and wipes from front to back, but has gotten a Bartholin gland abscess previously. She is not a diabetic. No other complaints at this time. 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 : None Musculoskeletal: None Derm: None - Past Surgical History Past Surgical History: No - Present Medications Home Medications: Ambulatory Orders Medication Instructions Recorded Confirmed Sertraline HCl 100 mg PO DAILY 07/05/22 07/05/22 clindamycin HCL [Clindamycin HCl] 300 mg PO Q8HR #21 cap 07/05/22 - Allergies Allergies/Adverse Reactions: Allergies Allergy/AdvReac Type Severity Reaction Status Date / Time lavender (Lavandula Allergy Rash Verified 07/05/22 08:07 angustifolia) - Social History Does the pt smoke?: No Smoking Status: Never smoker Does the pt drink ETOH?: No Does the pt have substance abuse?: No PD ED PE NORMAL - Vitals Vital signs reviewed: Yes - General General: Alert and oriented X 3, No acute distress, Well developed/nourished - HEENT HEENT: Atraumatic, PERRL, EOMI, Moist mucous membranes - Neck Neck: Supple, no meningeal sign - Respiratory Respiratory: No respiratory distress, Clear bilaterally - Female Female : Other (Normal female genitalia with the exception of a right labial fluctuant mass anteriorly. No erythema or induration. Approximately 1.5 cm fluctuant collection is palpable beneath the surface of the skin.) - Derm Derm: Warm and dry - Extremities Extremities: No deformity - Neuro Neuro: Alert and oriented X 3 - Psych Psych: Normal mood, Normal affect Results - Vitals Vitals: Vital Signs - 24 hr 07/05/22 08:04 Temperature 36.8 C Heart Rate 83 Respiratory 16 Rate Blood Pressure 153/52 H O2 Saturation 97 Oxygen O2 Source Room air Procedures - Abscess I&D (location) R labia Preparation: Betadine, Lidocaine 1% Incision: Incised with scalpel, Purulent drainage Other: Pt tolerated well, Antibiotic prescribed PD Medical Decision Making - ED course Complexity details: considered differential, d/w patient ED course: The patient's abscess was I&D need as above. Although the patient was anesthetized over the point of maximal fluctuance and incised at the same place, minimal drainage other than blood came out. I was fairly confident that there was a fluid collection and suspected perhaps that there were some loculations. As such, I did apply pressure to try to milk out any other drainage that might be in there, when I noticed that purulent drainage was expressing from a spontaneous opening about 1.5 cm posterior to my incision. I did apply pressure repeatedly to that area until no further purulent drainage was expressible. There was obvious deflation of the fluctuant mass and after being satisfied that no further drainage was expressible with pressure on any side, The procedure was complete. Because the drainage primarily came from a small spontaneous area of rupture, I was not able to place a Word catheter. I started the patient on clindamycin, which is category B for , and I discussed with her that hot soaks 3 times a day for 30 minutes at a time would be a good idea for the next several days. We have discussed the need for follow-up with her GROUNDS/MAINTENANCE SPECIALIST for further care. We have discussed the usual indications for return. Departure - Departure Disposition: 01 Home, Self Care Clinical Impression: Bartholin's gland abscess Condition: Stable Instructions: ED Abscess IandD Prescriptions: clindamycin HCL [Clindamycin HCl] 300 mg PO Q8HR #21 cap Comments: Pus was drained from the infected gland. We did make an incision, but you actually had a spontaneously draining area through which most of the pus came out. This should clear out the infection, but since the hole is so tiny and we did not want you to have to be cut twice since you already draining, we will put you on a course of antibiotics to prevent the abscess from recurring. The antibiotics are safe in and you have been given the first dose here in the emergency department. The prescription for the remainder has been electronically transmitted to the [facility] pharmacy [place] Please take your antibiotics up at the pharmacy this morning and take your next dose in the early afternoon. You may take another dose just before bed. It is advisable that you do hot soaks 3 times a day for at least 30 minutes at a time to help encourage any further drainage that might want to develop. Please follow-up with your GROUNDS/MAINTENANCE SPECIALIST for further concerns. Discharge Date/Time: 07/05/22 09:00
[2022-07-05] MEDS ORDERED: CLINDAMYCIN 150 MG CAPSULE PO STA (08:59)
[2022-07-05 09:22] VITALS: BP 127/61
== END 2022-07-05 09:00 | disposition home or self-care (01) ==
LOC: ED 08:00
DX: O23.591 Infection of other part of genital tract in pregnancy, first trimester (principal); Z3A.09 9 weeks gestation of pregnancy
CPT/HCPCS: 56420; 99282; 99283; A9270

== ENCOUNTER 2022-10-15 06:16 | Outpatient (CLI) | payer OTHER | END 2022-10-15 23:59 | disposition EMS.NT | LOC: EMS 06:16 | DX: O99.891 Other specified diseases and conditions complicating pregnancy (principal); R07.89 Other chest pain; F41.9 Anxiety disorder, unspecified ==

== ENCOUNTER 2023-01-02 18:06 | Outpatient (CLI) | payer OTHER ==
[2023-01-02] MEDS ORDERED: BETAMETHASONE 30 MG/5 ML VIAL IM ONE (19:04)
[2023-01-02 19:30] VITALS: BP 122/77; O2SAT 97
[2023-01-02] MEDS ORDERED: LACTATED RINGERS 500 ML IV ONE (19:43)
--- NOTE | 2023-01-02 19:47 | HISTORY & PHYSICAL EXAMINATION ---
Admit History - Visit Reason Visit Reason: Contractions - : 2 Premature: 1 Care: positive: Other ([facility]) Risk/History: positive: Previous Complications This : positive: None Smoking Status: Never smoker - Other Maternal History Other Maternal History: HPI: Patient is a 27-year-old at 35 weeks 4 days gestation presenting today for contractions. She gets her health care at [facility] Dr. Torres. She had a visit yesterday and says she was checked and found to be 1 cm.. Now she is currently 2 cm LSS and Noel and okay yeah I think she is comfortable going by private ambulance and I think that she is stable enough that I am okay with she has good movement. Denies loss of fluid. No PATHAK/BV or RUQP. No vaginal bleeding. Denies nausea and vomiting. Denies urinary urgency or dysuria. She did have 1 episode of vomiting this morning, but nothing since. Course Previous section x 1 for breech presentation. Desires repeat CS records pending. PMH Depression PSH Previous low-transverse section OB History -1-0-0 07/06/2020: Female, 33 weeks, spontaneous rupture of membranes, breech presentation, section, chromosomal anomaly SH Denies tobacco, alcohol, drugs Family History Denies pertinent Allergies Lavender Medications vitamins Sertraline 200 mg daily. Physical exam: General: Alert, oriented, no acute distress. Occasionaly strong contraction, but smiling between. Head: Normal cephalic atraumatic Eyes: PERRLA, extraocular motions intact. Respiratory: Normal rate of respiration. No accessory muscle use, normal respiratory effort. Cardiovascular: Regular rate and rhythm Abdomen: Gravid, nontender, nondistended Extremities: Normal range of motion Neuro: Oriented x3. Normal movements Psych: Appropriate mood and affect. Normal judgment and insight SVE: 2/60/-3, posterior, medium. FHT: 130 bpm baseline, moderate variability, accelerations present, no decelerations. Reactive NST [place]: 2 to 4 minutes Plan 27-year-old -1-0-0 at 35 weeks 4 days gestation presenting with labor 1. labor: -Significant change from yesterday at 1 cm. while I did not do her initial cervical exam, was noted to be 2 cm. -Partha every 2 to 4 minutes. Have been progressing throughout the day. -Approximately every 5 to 10 minutes, she will have a more significant contraction with 6 out of 10 pain, other contractions are uncomfortable but not as painful. Feels these mostly in her right lower quadrant. -Received dose of betamethasone 12 mg at 1918. -Spoke with [facility] transfer center, and discussed that transports via private vehicle to [facility] was appropriate. She is unlikely to deliver urgently prior to then. Offered patient ambulance or helicopter transport, but she and her partner feel confident that while they want to move in that direction, it is not an emergency. Discussed the several hospitals along the way that if contractions worsen or get closer together, she should stop for evaluation. Spoke with Dr.Alyssa Gomez who coordinated with Dr. Torres for accepting the patient at [facility]. 2. Previous low-transverse section x 1 -Due to breech presentation and delivery. 3. Depression -Taking sertraline, mood currently good. - HPI Vital Signs Temperature 98.1 F 01/02/23 18:31 Heart Rate 94 01/02/23 18:31 Respiratory Rate 18 01/02/23 18:31 Blood Pressure 134/82 H 01/02/23 18:31 O2 Saturation 100 01/02/23 18:31 Temperature 97.8 F 01/02/23 19:26 Heart Rate 76 01/02/23 19:26 Respiratory Rate 18 01/02/23 19:26 Blood Pressure 122/77 01/02/23 19:26 O2 Saturation 97 01/02/23 19:26 If not protocol: Oxygen Flow, liters/minute - NST Procedure NST Procedure Start Time 20:13 Stop Time 20:35 Meds/Allgy - Home Medications Home Medications: Ambulatory Orders Medication Instructions Recorded Confirmed Sertraline HCl 100 mg PO DAILY 07/05/22 07/05/22 clindamycin HCL [Clindamycin HCl] 300 mg PO Q8HR #21 cap 07/05/22 - Allergies Allergies/Adverse Reactions: Allergies Allergy/AdvReac Type Severity Reaction Status Date / Time lavender (Lavandula Allergy Rash Verified 07/05/22 08:07 angustifolia) Physical - Abdominal Exam Vital Signs: Temp Pulse Resp BP Pulse Ox O2 Flow Rate 97.8 F 76 18 122/77 97 01/02/23 19:26 01/02/23 19:26 01/02/23 19:26 01/02/23 19:26 01/02/23 19:26 Plan for Labor - Plan For Labor I expect patient to be DC'd or transferred within 96 hours.: Yes
[2023-01-02 20:16] LABS: BASOPHILS % (AUTO) 0.3 %; EOSINOPHILS # (AUTO) 0.2 10^3/uL (0.0-0.7); HCT - HEMATOCRIT 35.1 % (37.0-47.0); HGB - HEMOGLOBIN 11.6 g/dL (12.0-16.0); LYMPHOCYTES # (AUTO) 0.9 10^3/uL (1.5-3.5); LYMPHOCYTES % (AUTO) 6.4 %; MEAN CORPUSCULAR HEMOGLOBIN 29.9 pg (27.0-31.0); MEAN CORPUSCULAR VOLUME 90.5 fL (81.0-99.0); MEAN PLATELET VOLUME 10.4 fL (7.9-10.8); MONOCYTES # (AUTO) 0.7 10^3/uL (0.0-1.0); NEUTROPHILS # (AUTO) 12.6 10^3/uL (1.5-6.6); NEUTROPHILS % (AUTO) 86.5 %; PLT - PLATELET COUNT 236 10^3/uL (130-450); RED BLOOD COUNT 3.88 10^6/uL (4.20-5.40); RED CELL DISTRIBUTION WIDTH 13.1 % (12.0-15.0); WHITE BLOOD COUNT 14.6 x10^3/uL (4.8-10.8)
== END 2023-01-02 20:40 | disposition home or self-care (01) ==
LOC: WFO 18:06 → FBP 18:07 → WFO 20:40
PROVIDERS: ATTEND Obstetrics & Gynecology
DX: O60.03 Preterm labor without delivery, third trimester (principal); O34.211 Maternal care for low transverse scar from previous cesarean delivery; O99.343 Other mental disorders complicating pregnancy, third trimester; F32.A Depression, unspecified; Z3A.35 35 weeks gestation of pregnancy; Z79.899 Other long term (current) drug therapy
CPT/HCPCS: 85025; 96372; 99214

== ENCOUNTER 2023-02-04 17:32 | Emergency (ER) | payer OTHER ==
[2023-02-04] MEDS ORDERED: KETOROLAC 15 MG/ML VIAL IVP STA (18:01)
[2023-02-04] MEDS ORDERED: SODIUM CHLORIDE 0.9% 1,000 ML IV STA (18:01)
[2023-02-04 18:15] LABS: BASOPHILS % (AUTO) 0.4 %; EOSINOPHILS # (AUTO) 0.1 10^3/uL (0.0-0.7); EOSINOPHILS % (AUTO) 1.5 %; HCT - HEMATOCRIT 36.7 % (37.0-47.0); HGB - HEMOGLOBIN 11.8 g/dL (12.0-16.0); LYMPHOCYTES # (AUTO) 1.2 10^3/uL (1.5-3.5); LYMPHOCYTES % (AUTO) 13.5 %; MEAN CORPUSCULAR HEMOGLOBIN 28.4 pg (27.0-31.0); MEAN CORPUSCULAR HGB CONC 32.2 g/dL (32.0-36.0); MEAN CORPUSCULAR VOLUME 88.2 fL (81.0-99.0); MEAN PLATELET VOLUME 10.4 fL (7.9-10.8); MONOCYTES # (AUTO) 0.4 10^3/uL (0.0-1.0); MONOCYTES % (AUTO) 5.1 %; NEUTROPHILS # (AUTO) 6.8 10^3/uL (1.5-6.6); NEUTROPHILS % (AUTO) 79.4 %; PLT - PLATELET COUNT 286 10^3/uL (130-450); RED BLOOD COUNT 4.16 10^6/uL (4.20-5.40); RED CELL DISTRIBUTION WIDTH 12.6 % (12.0-15.0); WHITE BLOOD COUNT 8.5 x10^3/uL (4.8-10.8)
--- NOTE | 2023-02-04 18:16 | ED Physician Documentation ---
PD HPI ABD PAIN - Stated complaint Stated Complaint: CHEST PX - Chief complaint Chief Complaint: Abd Pain - History obtained from History obtained from: Patient - Additional information Additional information: 27-year-old female presents from home by private vehicle for midepigastric and right-sided abdominal pain with pain to her shoulder blades. Patient states that pain has been intermittent for months, but tonight it was lasting longer and more severe, so she decided to present for evaluation. Patient cannot identify what makes it come or go. No other symptoms. Previous history of , no other intra-abdominal surgeries. Review of Systems Constitutional: denies: Fever, Chills GI: reports: Abdominal Pain, Nausea. 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 : None Musculoskeletal: None Derm: None - Past Surgical History Past Surgical History: No - Present Medications Home Medications: Ambulatory Orders Medication Instructions Recorded Confirmed Sertraline HCl 100 mg PO DAILY 07/05/22 02/04/23 - Allergies Allergies/Adverse Reactions: Allergies Allergy/AdvReac Type Severity Reaction Status Date / Time lavender (Lavandula Allergy Rash Verified 02/04/23 17:43 angustifolia) - Social History Does the pt smoke?: No Smoking Status: Never smoker Does the pt drink ETOH?: No Does the pt have substance abuse?: No PD ED PE NORMAL - Vitals Vital signs reviewed: Yes - General General: Alert and oriented X 3, Well developed/nourished - Neck Neck: Supple, no meningeal sign - Cardiac Cardiac: RRR, Strong equal pulses - Respiratory Respiratory: No respiratory distress - Abdomen Abdomen: Soft, Other (RUQ tenderness to palpation) - Derm Derm: Normal color, Warm and dry, No rash - Extremities Extremities: No deformity, No tenderness to palpate, Normal ROM s pain - Neuro Neuro: Alert and oriented X 3, manager estate 2-12 intact, No motor deficit, Normal speech - Psych Psych: Normal mood, Normal affect Results - Vitals Vitals: Vital Signs - 24 hr 02/04/23 02/04/23 02/04/23 17:39 18:00 20:00 Temperature 36.2 C L 36.4 C L Heart Rate 87 72 Respiratory 20 17 Rate Blood Pressure 146/95 H 119/80 131/87 H O2 Saturation 97 97 Oxygen O2 Source Room air - Labs Labs: Laboratory Tests 02/04/23 02/04/23 02/04/23 18:00 18:35 18:35 WBC 8.5 RBC 4.16 L Hgb 11.8 L Hct 36.7 L MCV 88.2 MCH 28.4 MCHC 32.2 RDW 12.6 Plt Count 286 MPV 10.4 Neut # (Auto) 6.8 H Lymph # (Auto) 1.2 L [place] # (Auto) 0.4 Eos # (Auto) 0.1 Baso # (Auto) 0.0 Absolute Nucleated RBC 0.00 Nucleated RBC % 0.0 PT 11.4 INR 1.1 Sodium 137 Potassium 3.7 Chloride 102 Carbon Dioxide 25 Anion Gap 10.0 BUN 14 Creatinine 0.7 Estimated GFR (MDRD) 99 Glucose 91 Calcium 10.5 H Total Bilirubin 1.3 H AST 494 H ALT 235 H Alkaline Phosphatase 243 H Total Protein 6.8 Albumin 4.3 Globulin 2.5 Albumin/Globulin Ratio 1.7 Lipase 19 Urine Color Urine Clarity Urine pH Ur Specific [place] Urine Protein Urine Glucose (UA) Urine Ketones Urine Occult Blood Urine Nitrite Urine Bilirubin Urine Urobilinogen Ur Leukocyte Esterase Urine RBC Urine WBC Ur Squamous Epith Cells Urine Bacteria Ur Microscopic Review Urine Culture Comments 02/04/23 20:08 WBC RBC Hgb Hct MCV MCH MCHC RDW Plt Count MPV Neut # (Auto) Lymph # (Auto) [place] # (Auto) Eos # (Auto) Baso # (Auto) Absolute Nucleated RBC Nucleated RBC % PT INR Sodium Potassium Chloride Carbon Dioxide Anion Gap BUN Creatinine Estimated GFR (MDRD) Glucose Calcium Total Bilirubin AST ALT Alkaline Phosphatase Total Protein Albumin Globulin Albumin/Globulin Ratio Lipase Urine Color YELLOW Urine Clarity CLEAR Urine pH 6.5 Ur Specific [place] <=1.005 Urine Protein NEGATIVE Urine Glucose (UA) NEGATIVE Urine Ketones NEGATIVE Urine Occult Blood MODERATE H Urine Nitrite NEGATIVE Urine Bilirubin NEGATIVE Urine Urobilinogen 0.2 (NORMAL) Ur Leukocyte Esterase NEGATIVE Urine RBC 6-10 H Urine WBC 0-3 Ur Squamous Epith Cells RARE Squamous Urine Bacteria Rare Ur Microscopic Review INDICATED Urine Culture Comments NOT INDICATED PD Medical Decision Making - ED course Complexity details: reviewed old records, reviewed results, re-evaluated patient, considered differential, d/w patient, d/w family ED course: Uncomfortable but nontoxic patient presenting with right upper quadrant abdominal pain. Abdomen is soft but patient has definite tenderness to palpation in the right upper quadrant. Especially given recent concerns for cholecystitis. Labs, pain medications, CT imaging ordered. Laboratory work shows no leukocytosis, liver enzymes are elevated with T. bili 1.3, AST and ALT greater than 400. Lipase within normal limits. CT of the abdomen and pelvis shows distended gallbladder with stones but is indeterminate for cholecystitis. Ultrasound ordered for assessment. Patient reassessed, states her pain is improved but is still present. She initially was hesitant to take narcotics because she is breast-feeding, but has already pumped this evening and is amenable to additional pain medications at this time. Ultrasound shows some wall thickening with gallstones and positive sonographic Wolf sign. Findings suspicious for acute cholecystitis. Unfortunately we do not currently have general surgery, call placed to [facility] for surgical consult Care of patient signed to overnight provider, Dr. Stevenson. Departure - Departure Clinical Impression: Cholecystitis Forms: PCP List
--- NOTE | 2023-02-04 18:27 | XRAY Report ---
PROCEDURE: Chest 1V INDICATIONS: MIDEPIGASTRIC/CHEST PAIN TECHNIQUE: One view of the chest was acquired. COMPARISON: None. FINDINGS: Surgical changes and devices: None. Lungs and pleura: No pleural effusions or pneumothorax. Lungs are clear. Mediastinum: Mediastinal contours appear normal. Heart size is normal. Bones and chest wall: No suspicious bony lesions. Overlying soft tissues appear unremarkable. IMPRESSION: No acute cardiopulmonary process. Reviewed by: Davian Booth MD on 02/04/2023 6:25 PM [facility] Approved by: Davian Booth MD on 02/04/2023 6:25 PM [facility] Station ID: [id number]
[2023-02-04 18:48] LABS: INR 1.1 (0.8-1.2); PT - PROTHROMBIN TIME 11.4 secs (9.9-12.6)
[2023-02-04 18:56] LABS: ALBUMIN 4.3 g/dL (3.2-5.5); ALBUMIN/GLOBULIN RATIO 1.7 (1.0-2.2); BILIRUBIN,TOTAL 1.3 mg/dL (0.2-1.0); CALCIUM 10.5 mg/dL (8.5-10.3); CREATININE 0.7 mg/dL (0.6-1.3); POTASSIUM 3.7 mmol/L (3.5-4.5); TOTAL PROTEIN 6.8 g/dL (6.4-8.9)
[2023-02-04] MEDS ORDERED: MORPHINE 2 MG/ML CARPUJECT IVP STA (20:15)
[2023-02-04 20:18] LABS: BILIRUBIN,URINE NEGATIVE (NEGATIVE); GLUCOSE, URINE (UA) NEGATIVE (NEGATIVE); KETONES,URINE (UA) NEGATIVE (NEGATIVE); LEUKOCYTE ESTERASE, URINE NEGATIVE (NEGATIVE); NITRITE,URINE NEGATIVE (NEGATIVE); OCCULT BLOOD,URINE MODERATE (NEGATIVE); PH,URINE 6.5 PH (5.0-7.5); PROTEIN,URINE NEGATIVE (NEGATIVE); UROBILINOGEN,URINE 0.2 (NORMAL) E.U./dL (NORMAL)
[2023-02-04 20:20] LABS: CLARITY,URINE CLEAR (CLEAR)
--- NOTE | 2023-02-04 20:20 | CT Report ---
PROCEDURE: ABDOMEN/PELVIS W INDICATIONS: RUQ/MIDEPIGASTRIC PAIN CONTRAST: Omni 300 100ml TECHNIQUE: After the administration of intravenous contrast, a CT scan of the abdomen and pelvis was performed. Images were recorded and evaluated at appropriate window settings. Reformats: coronal and sagittal. F or radiation dose reduction, the following was used: automated exposure control, adjustment of mA and /or kV according to patient size. COMPARISON: None. FINDINGS: Image quality: Diagnostic. Lung bases and heart: Unremarkable. Liver: No solid mass. Gallbladder and biliary tree: Gallbladder is distended containing stones. No gallbladder wall thicken ing or pericholecystic fluid. No intrahepatic or extrahepatic biliary ductal dilatation. Spleen: No splenomegaly. Pancreas: No pancreatic ductal dilation. Adrenals: No adrenal nodule. Kidneys and ureters: No hydronephrosis. No renal cystic lesion which requires follow up. No solid mas s. Bowel and peritoneum: No bowel distension. No pathologic free fluid. Lymph nodes: No central or retroperitoneal adenopathy. Vessels: No infrarenal aortic aneurysm. PELVIS Reproductive organs: Unremarkable. Bladder: No abnormal wall thickening, accounting for underdistention. Pelvic lymph nodes: No pelvic adenopathy by size criteria. Bones: Left L5 pars interarticularis defect. No acute or suspicious osseous abnormality. Dumbbell. Other: No significant ventral or inguinal hernia. IMPRESSION: Distended gallbladder with cholelithiasis without wall thickening or pericholecystic fluid. CT findin gs are equivocal for acute cholecystitis. Further evaluation with right upper quadrant ultrasound can be considered. Reviewed by: Kelly Dill MD on 02/04/2023 8:19 PM PST Approved by: Kelly Dill MD on 02/04/2023 8:19 PM PST Station ID: [id number]
[2023-02-04 20:32] LABS: WBC,URINE 0-3 /HPF (0-5)
[2023-02-04 20:33] LABS: BACTERIA,URINE Rare /HPF (None Seen); SQUAMOUS EPITHELIAL CELL,UR RARE Squamous (<= Few)
[2023-02-04] MEDS ORDERED: PIPERACILLIN/TAZOBACTAM 3.375 GM in SODIUM CHLORIDE 0.9% MINIBAG 100 ML IV STA (21:39)
[2023-02-04] MEDS ORDERED: iohexoL-300 100 ML VIAL IVP ONE (22:00)
--- NOTE | 2023-02-04 22:43 | ED Physician Documentation ---
ED Addendum - Addendum Addendum: 02/04/23 22:53 Patient endorsed to me (Dr. Stevenson) by Dr. Meyers pending either transfer to hospital with general surgery capabilities or our surgeon recovering and coming back on service tomorrow. d/w Dr. Villatoro, surgeon plant operations worker at [facility] who accepts in transfer. however, transfer center says there are no beds. will likely maintain on IV antibiotics overnight and endorse to incoming daytime ED MD at 7am shift change.
--- NOTE | 2023-02-04 23:08 | Ultrasound Report ---
PROCEDURE: Abdomen Limited INDICATIONS: RUQ PAIN, TRANSAMMINITIS, INDETERMINANT CT TECHNIQUE: Real-time focused scanning was performed of the abdomen, with image documentation. COMPARISONS: CT abdomen pelvis 02/04/2023. FINDINGS: Liver: Liver is normal in size and homogeneous in echotexture. Gallbladder: Distended gallbladder containing stones. Gallbladder wall thickness is within normal rivera its with focal area of thickening measuring up to 6 mm. No pericholecystic fluid. Sonographic Wolf sign is equivocal as patient was receiving pain medication at time of scan. Biliary ducts: Intrahepatic bile ducts are non-dilated. Extrahepatic bile duct caliber measures 5 m m. Normal is 6-7 mm or less in diameter, or 10 mm or less post-cholecystectomy. Pancreas: Visualized portions of the pancreas are sonographically normal. Right kidney: Normal in size and echotexture. Right kidney measures 11.1 cm long. No hydronephrosis or nephrolithiasis. No solid masses. No complex renal cystic lesions which require follow-up. IMPRESSION: Distended gallbladder containing calcified stones. Focal thickening of the gallbladder wall without p ericholecystic fluid. Sonographic Wolf's sign cannot be adequately assessed as patient received med ication during scan. Overall sonographic findings are equivocal for acute cholecystitis. Reviewed by: Kelly Dill MD on 02/04/2023 11:07 PM PST Approved by: Kelly Dill MD on 02/04/2023 11:07 PM PST Station ID: [id number]
--- NOTE | 2023-02-05 17:26 | ED Physician Documentation ---
ED Addendum - Addendum Addendum: 02/05/23 17:26 Patient received in signout from outgoing physician, please see their d ocumentation for further detail. Patient monitored carefully throughout the majority of my shift. Care was discussed with the surgical team at [facility]. Patient graciously accepted to schedule [facility]. Transferred from our facility to schedule [facility] without incident.
[2023-02-05 17:32] VITALS: O2SAT 100
[2023-02-05 19:01] VITALS: BP 109/69
== END 2023-02-05 18:25 | disposition short-term general hospital (02) ==
LOC: ED 17:32
DX: K81.9 Cholecystitis, unspecified (principal)
CPT/HCPCS: 36415; 71045; 74177; 76705; 80053; 81001; 83690; 85025; 85610; 99284; 99285; Q9967; 81003; 87086

== ENCOUNTER 2023-02-17 07:26 | Outpatient (CLI) | payer OTHER | END 2023-02-17 23:59 | disposition short-term general hospital (02) | LOC: EMS 07:26 | DX: R10.13 Epigastric pain (principal); R10.11 Right upper quadrant pain; R10.12 Left upper quadrant pain; R11.0 Nausea | CPT/HCPCS: A0425; A0427 ==